=== PATIENT | female | born 1995 | race Hispanic/Latino ===

== ENCOUNTER 2017-11-18 01:36 | Inpatient (IN) | payer MEDICAID, OTHER, SELFPAY ==
[2017-11-18 02:03] VITALS: BMI 27.4
[2017-11-18 02:24] LABS: Amnisure Test RUPTURE DETECTED (No Rupture)
[2017-11-18 02:26] LABS: Amnisure Internal Control QC ACCEPTABLE (ACCEPTABLE)
--- NOTE | 2017-11-18 02:35 | PDOC.LDHP ---
Labor and Delivery H&P Chief complaint: loss of fluid HPI: 22 yo G1 at 40.2 by LMP confirmed with 19.5wk sono. She came in for loss of fluid at 0040 and increased contractions. Following rupture, she noticed a small amount of blood on toilet paper, no gross blood in fluid loss. + movement. Amnisure+, confirmed SROM in L&D. She is followed by Dr. Gasca and clinic. Patient has no other complaints at this time. Current gestational age (weeks): 40 (40.2) Due date: 11/16/17 Dating criteria: last menstrual period (02/09/17), first trimester ultrasound ( 19.5wk sono. Clinical records have been dating her using both LMP and sono) Grav: 1 Para: 0 OB History Details: Seen in clinic with Dr. Gasca. Prior ultrasounds have confirmed normal anatomy, anterior placenta with [place] of 52.6% @ 29.1wks. Patient had f/u U/S at 29.3 with consistent dating from first U/S. Current complications: none, other (anemia of , RH- ( received Rhogam @ 31 wks)) Abnormal US findings: No Past Medical History: Systolic heart murmur, congenital. Current medications: pre- vitamins, iron Previous surgical history: none Allergies/Adverse Reactions: Allergies Allergy/AdvReac Type Severity Reaction Status Date / Time No Known Allergies Allergy Unverified 11/18/17 01:57 Social history: none - Physical Exam General: NAD, resting Heart: RRR Lungs: CTAB Abdomen: NTTP Extremeties: no edema FHT: variability present (130/mod/+accels, no decels or variables) - Vaginal Exam cm dilated: 3 (@0210) Effacement: 90% Station: -1 - OB Labs Blood type: O RH: negative Antibody Screen: negative HIV: negative RPR: negative 1 hour GCT: negative (109) GBS: negative Urine drug screen: not done Rubella: immune Additional Labs: (-)Zika, dengue, quant gold, NILM, pap on 06/28/17 - Assessment L&D Assessment: term rupture in membranes - Plan Plan: admit to L&D (Admit to L&D for confirmed SROM (+FFN)) -: 22 yo G1 at 40.2 by LMP/19.5wk sono presents with loss of fluid. 1. SROM +Amnisure 2. TIUP, sIUP -Plan for expectant management -Patient does not desire epidural at this time -GBS (-) -Third trimester labs reviewed 3. Anemia of -Prior records show H/H 10.8/30.1 @ 31 (10/20/17) -Plan to repeat H/H 4. Rh (-) -Recevied Rhogam @ 31 wks -Plan to give Rhogam after delivery 5. Recent immigrant -(-)Quant gold, Zika and Dengue 6. Systolic heart murmur -Had since /childhood -Asymptomatic
[2017-11-18] MEDS ORDERED: Promethazine HCl 25 MG/ML VIAL IM PRN ×2 (02:38→12:56)
[2017-11-18] MEDS ORDERED: Ondansetron HCl/PF 4 MG/2 ML Vial IVP PRN ×2 (02:38→12:56)
[2017-11-18] MEDS ORDERED: Acetaminophen 500 MG TAB PO PRN (02:38)
[2017-11-18] MEDS ORDERED: Lidocaine 1% (PF) 30 ML VIAL SC PRN (02:38)
[2017-11-18] MEDS ORDERED: Penicillin G Potassium 5 MILL.UNITS in Sodium Chloride 0.9% 100 ML IVPB SCH (03:00)
[2017-11-18 03:50] LABS: HBSAg Index 0.14 S/CO (0-0.99); Hep B Surf Ag Non-Reactive S/CO (NonReactive)
[2017-11-18] MEDS: Lactated Ringer's 1,000 ML IV SCH ×4 (04:58→17:42)
[2017-11-18 05:24] LABS: Hemoglobin 11.7 g/dL (12.0-16.0); Mean Corpuscular HGB CONC 31.1 g/dL (32.0-36.0); Mean Corpuscular Hemoglobin 28.6 pg (27.0-31.0); Mean Corpuscular Volume 91.8 fL (78.0-98.0); Platelet Count 181 thou/uL (130-400); Red Blood Cell (RBC) Count 4.11 mill/uL (4.20-5.40); White Blood Cell (WBC) Count 10.8 thou/uL (4.8-10.8)
--- NOTE | 2017-11-18 06:20 | PDOC.LDPN ---
Labor & Delivery Progress Note - Subjective Subjective: painful contractions (discomfort with contractions, no epidural), vaginal pressure - Objective Vital signs reviewed and normal: yes Abnormal vital signs: Recent BP with systolic 141 General: NAD, breathing through contractions Uterine fundus: non tender Dilation: 5 Effacement: 100% Station: 0 FHT: category 1 (150/mod/+accels) [place] contractions every: 4-6min Plan: continue plan of care -: 22 yo G1 at 40.2 by LMP/19.5wk sono presents with loss of fluid. 1. SROM +Amnisure 2. TIUP, sIUP -Plan for expectant management -Patient does not desire epidural at this time -GBS (-) -Third trimester labs reviewed -/100/0 @0600 -Will start Stadol IV q4hr for pain 3. Anemia of -Prior records show H/H 10.8/30.1 @ 31 (10/20/17) -Repeat H/h is improved from office at 11.7/37.7 4. Rh (-) -Recevied Rhogam @ 31 wks -Plan to give Rhogam after delivery 5. Recent immigrant -(-)Quant gold, Zika and Dengue 6. Systolic heart murmur -Had since /childhood -Asymptomatic 7. Elevated BP -147/87 with repeat of 133. 3min later it was 141/88 -Could be due to discomfort from CTX, no epidural in place -Remains asx-denies ELAM or vision changes -Will monitor BPs will manage dependent on BP range <Rayna Orozco - Last Filed: 11/18/17 06:44> Attending Addendum - Attending Addendum Date/Time: 11/18/17 1113 I personally evaluated the patient and discussed the management with Dr. Orozco I agree with the History, Examination, Assessment and Plan documented above with any addition or exceptions noted below- 22 yo @ 40.2 weeks admitted with SROM in early labor. Patient has progressed to 5 cm. Category 1 FHTs. Continue expectant management. <Rylee Sal - Last Filed: 11/18/17 11:15>
[2017-11-18] MEDS: Butorphanol Tartrate 1 MG/ML VIAL SLOW IVP PRN ×2 (06:47→10:35)
[2017-11-18] MEDS ORDERED: Penicillin G 2.5 MILL.units 2.5 MILL.UNITS in Premix Bag 1 BAG IVPB SCH (07:00)
--- NOTE | 2017-11-18 08:33 | PDOC.LDPN ---
Labor & Delivery Progress Note - Subjective Subjective: comfortable - Objective Vital signs reviewed and normal: yes General: NAD SVE: 5/C/0 FHT: category 1 [place] contractions every: q5-6 min Plan: labor augmentation -: 1) IUP @40.2 weeks with SROM- no cervical change since last check. Will start pitocin augmentation. Category 1 FHTs.
[2017-11-18] MEDS: NS w/ Oxytocin 10 units 500 ML IV SCH (09:33)
[2017-11-18] MEDS ORDERED: Butorphanol Tartrate 1 MG/ML VIAL SLOW IVP PRN (10:36)
--- NOTE | 2017-11-18 11:56 | PDOC.LDPN ---
Labor & Delivery Progress Note - Subjective Subjective: painful contractions - Objective Vital signs reviewed and normal: yes General: breathing through contractions SVE: 5.5/100/0 FHT: category 1 (140/mod/+ accels/no decels) [place] contractions every: 2-3min - Assessment (1) Term Code(s): Z34.80 - ENCOUNTER FOR SUPRVSN OF NORMAL , UNSP TRIMESTER Current Visit: Yes Status: Acute Plan: continue plan of care -: 22 yo G1 at 40.2 by LMP/19.5wk sono presents with loss of fluid. 1. SROM +Amnisure 2. TIUP, sIUP -Plan for expectant management -GBS (-) -Third trimester labs reviewed -5.5/100/0 @1200 -Patient requested epidural for pain - Pitocin at 8 3. Anemia of -Prior records show H/H 10.8/30.1 @ 31 (10/20/17) -Repeat H/h is improved from office at 11.7/37.7 4. Rh (-) -Recevied Rhogam @ 31 wks -Plan to give Rhogam after delivery if baby is Rh + 5. Recent immigrant -(-)Quant gold, Zika and Dengue 6. Systolic heart murmur -Had since /childhood -Asymptomatic 7. Elevated BP - No further elevated BPs, continue to monitor
[2017-11-18] MEDS ORDERED: DISCONTINUE ALL PREVIOUS NARCOTICS FS SCH (12:00)
[2017-11-18] MEDS: Bupivacaine 0.75% 13.4 ML, fentaNYL Citrate/PF 400 MCG in Sodium Chloride 0.9% 78.6 ML EPIDURAL SCH ×2 (12:53→20:00)
[2017-11-18] MEDS ORDERED: ePHEDrine/0.9% NaCl/PF SYRINGE 50 mg/10 ml SLOW IVP PRN (12:56)
[2017-11-18] MEDS ORDERED: Eucerin (Mineral Oil/Petrolatum,White) 30 gm Jar TOP PRN (12:56)
[2017-11-18] MEDS ORDERED: Naloxone HCl 0.4 mg/ml Vial IVP PRN ×2 (12:56)
[2017-11-18] MEDS ORDERED: diphenhydrAMINE 50 MG/ML VIAL IVP PRN (12:56)
[2017-11-18] MEDS ORDERED: Lactated Ringer's 500 ML IV PRN (12:56)
[2017-11-18] MEDS ORDERED: Acetaminophen 325 MG TAB PO PRN (12:56)
[2017-11-18] MEDS ORDERED: Communication Order-Pharmacy FS SCH (13:00)
[2017-11-18] MEDS ORDERED: fentaNYL Citrate/PF 400 MCG, Bupivacaine 0.5% 20 ML in Sodium Chloride 0.9% 72 ML EPIDURAL SCH (13:00)
--- NOTE | 2017-11-18 14:16 | PDOC.LDPN ---
Labor & Delivery Progress Note - Subjective Subjective: comfortable - Objective Vital signs reviewed and normal: yes General: NAD SVE: /+1 per nursing FHT: category 1 (140/mod/+ accels/no decels) [place] contractions every: 2-3min - Assessment (1) Term Code(s): Z34.80 - ENCOUNTER FOR SUPRVSN OF NORMAL , UNSP TRIMESTER Current Visit: Yes Status: Acute Plan: continue plan of care -: 22 yo G1 at 40.2 by LMP/19.5wk sono presents with loss of fluid. 1. SROM +Amnisure 2. TIUP, sIUP -Plan for expectant management -GBS (-) -Third trimester labs reviewed -/+1 per nursing -Epidural in place, pt comfortable -Pitocin at 8 3. Anemia of -Prior records show H/H 10.8/30.1 @ 31 (10/20/17) -Repeat H/h is improved from office at 11.7/37.7 4. Rh (-) -Recevied Rhogam @ 31 wks -Plan to give Rhogam after delivery if baby is Rh + 5. Recent immigrant -(-)Quant gold, Zika and Dengue 6. Systolic heart murmur -Had since /childhood -Asymptomatic 7. Elevated BP - No further elevated BPs, continue to monitor
--- NOTE | 2017-11-18 16:10 | PDOC.LDPN ---
Labor & Delivery Progress Note - Subjective Subjective: comfortable - Objective Vital signs reviewed and normal: yes General: NAD SVE: /+1 FHT: category 1 (150/mod/+ accels/no decels) [place] contractions every: 1-2min - Assessment (1) Term Code(s): Z34.80 - ENCOUNTER FOR SUPRVSN OF NORMAL , UNSP TRIMESTER Current Visit: Yes Status: Acute Plan: continue plan of care -: 22 yo G1 at 40.2 by LMP/19.5wk sono presents with loss of fluid. 1. SROM +Amnisure 2. TIUP, sIUP -Plan for expectant management -GBS (-) -Third trimester labs reviewed -/+1 @1600 -Epidural in place, pt comfortable -Pitocin at 10 3. Anemia of -Prior records show H/H 10.8/30.1 @ 31 (10/20/17) -Repeat H/h is improved from office at 11.7/37.7 4. Rh (-) -Recevied Rhogam @ 31 wks -Plan to give Rhogam after delivery if baby is Rh + 5. Recent immigrant -(-)Quant gold, Zika and Dengue 6. Systolic heart murmur -Had since /childhood -Asymptomatic 7. Elevated BP - No further elevated BPs, continue to monitor
[2017-11-18] MEDS ORDERED: Gentamicin 20 MG/2 ML PF (Neonates) IVPB SCH (17:45)
[2017-11-18] MEDS ORDERED: Acetaminophen 500 MG TAB PO SCH (17:45)
--- NOTE | 2017-11-18 17:48 | PDOC.LDPN ---
Labor & Delivery Progress Note - Subjective Subjective: comfortable - Objective Vital signs reviewed and normal: yes Abnormal vital signs: Fever General: NAD Uterine fundus: non tender Dilation: 7 Effacement: 100% Station: 0 FHT: category 2 (170s/mod/no decels/accels present) [place] contractions every: 2 min IUPC placed: yes Resuscitative measures: maternal IV fluids, other (fluids, IV antibiotics) - Assessment (1) Chorioamnionitis in third trimester Code(s): O41.1230 - CHORIOAMNIONITIS, THIRD TRIMESTER, NOT APPLICABLE OR UNSP Current Visit: Yes Status: Acute -: 1. Term IUP in labor. - unchanged from prior check. -IUPC placed. inadequate contractions. Will titrate pit as pt tolerates. 2. Intra-amniotic infection. - 2 fevers at least 30 min apart with maternal and tachycardia. - will begin amp and gent. - continue to monitor. 3. Rh neg status - needs rhogam PP if baby rh+
[2017-11-18] MEDS ORDERED: Gentamicin Sulfate 310 MG in Sodium Chloride 0.9% 100 ML IVPB SCH (18:00)
[2017-11-18] MEDS: Ampicillin 2 GM in Sodium Chloride 0.9% 100 ML IVPB SCH ×2 (18:24→23:58)
--- NOTE | 2017-11-18 20:58 | PDOC.LDPN ---
Labor & Delivery Progress Note - Objective Vital signs reviewed and normal: yes General: NAD, breathing through contractions Uterine fundus: non tender Dilation: Rim Effacement: 100% Station: 2+ FHT: category 1, early decelerations [place] contractions every: 2-4 minutes - Assessment (1) Term Code(s): Z34.80 - ENCOUNTER FOR SUPRVSN OF NORMAL , UNSP TRIMESTER Current Visit: Yes Status: Acute Comment: Expected progress, considering primipara with inadequate early MVU's, improved with oxytocin. Continue current mgt in anticipation of : allow continued laboring down to reduce final Rim of cervix and further descent prior to pushing. (2) Chorioamnionitis in third trimester Code(s): O41.1230 - CHORIOAMNIONITIS, THIRD TRIMESTER, NOT APPLICABLE OR UNSP Current Visit: Yes Status: Acute Qualifiers: Fetus number: single or unspecified fetus Qualified Code(s): O41.1230 - Chorioamnionitis, third trimester, not applicable or unspecified Comment: Fever responded to Tylenol. Amp/Gent given.
[2017-11-18] MEDS: NS / Oxytocin 40 units/1000ml 1,000 ML ONE (23:02)
[2017-11-18] MEDS ORDERED: Methylergonovine 0.2 MG/ML VIAL ONE (23:31)
[2017-11-18] MEDS ORDERED: Misoprostol 200 MCG TAB ONE (23:31)
[2017-11-18] MEDS ORDERED: Butorphanol Tartrate 1 MG/ML VIAL ONE (23:35)
--- NOTE | 2017-11-19 00:49 | PDOC.OPDEL ---
OB Operative/Delivery Note Delivery Dr/Surgeon: Claudette Motley MD; Dr. Chadwick Brizuela MD; Assist: Dr. Vernon Gasca Pre-Delivery Diagnosis: active labor, ruptured membrane Procedure/Post Delivery Dx: spontaneous vaginal delivery Weeks gestation: 40 (40.2) Anesthesia: local - Additional Findings/Plan Placenta delivered: spontaneous Repaired Obstetrical Laceration: 2nd degree Estimated blood loss: 650 ml Compilations/Other Findings: Delivering Physician - Dr. Claudette Motley Attending - Dr. Vernon Gasca Procedure: Spontaneous Vaginal Delivery Anesthesia: epidural, Local for Repair EBL: 650 ml Pre-op Diagnosis: 1. Term intrauterine in labor 2. Hx of Rh neg 3. Anemia of 4. Chorioamnionitis 5. PROM for 21 hrs Post-op Diagnosis: 1. Term intrauterine , delivered 2. Hx of Rh neg 3. Anemia of 4. Chorioamnionitis 5. Post hemorrhage, EBL 650 cc 6. PROM for 21 hrs 7. 2nd degree perineal lac s/p repair Indications: A 22 y/o female @ 40.2 presents in active labor Delivery Note: This is 22 yo F @ 40.2 wks who delivered a viable F at 2302. Following an antepartum course complicated by maternal fever with concern for chorioamnionitis and PROM for 21 hrs, a vigorous Female was delivered over an intact perineum in the Right occipitoanterior position. Anterior Shoulder and then remainder of the body delivered. No nuchal cord. The head was held down and mouth and nares were bulb suctioned. After delayed cord clamping the cord was cut and cord blood collected. 800 mg cytotec was inserted rectally. Placenta delivered intact in the [place] presentation with a 3 vessel cord noted. Fundal massage was performed and the fundus was firm. The cervix and vagina were inspected and found to to have a second degree perineal laceration. The laceration was noted and repaired with 2-0 vicryl in the usual fashion with good approximation and hemostasis after a lidocaine local anesthetic was injected at site. EBL 650 cc. Infant went to nursery in good condition for routine care. Apgars were 8/9 at 1 & 5 minutes, respectively. Patient tolerated delivery well and went to after routine recovery/care. Post delivery plan: routine recovery
[2017-11-19] MEDS ORDERED: NS / Oxytocin 40 units/1000ml 1,000 ML ONE (00:51)
[2017-11-19] MEDS: NS / Oxytocin 40 units/1000ml 1,000 ML ONE (00:53)
[2017-11-19] MEDS ORDERED: Bisacodyl 10 MG SUPP PR PRN (03:04)
[2017-11-19] MEDS ORDERED: Preparation H Ointment 28 GM TUBE PR PRN (03:04)
[2017-11-19] MEDS ORDERED: Methylergonovine 0.2 MG/ML VIAL IM PRN (03:04)
[2017-11-19] MEDS ORDERED: NS / Oxytocin 40 units/1000ml 1,000 ML IV SCH (03:04)
[2017-11-19] MEDS ORDERED: Milk Of Magnesia 30 ML UDCUP PO PRN (03:04)
[2017-11-19] MEDS ORDERED: Lanolin Ointment 7 GM TUBE TOP PRN (03:04)
[2017-11-19] MEDS ORDERED: Adacel (T-DAP) 0.5 ML VIAL IM ONE ×2 (03:04→09:00)
[2017-11-19 03:32] LABS: #Monocytes 0.7 thou/uL (0.11-0.59); #Neutrophils 13.9 thou/uL (1.40-6.50); %Basophils 0.3 % (0.0-1.0); %Eosinophils 0.2 % (0.0-10.0); %Lymphocytes 6.3 % (21.0-51.0); %Monocytes 4.3 % (0.0-10.0); %Neutrophils 88.9 % (42.0-75.0); Hemoglobin 9.9 g/dL (12.0-16.0); Mean Corpuscular HGB CONC 35.5 g/dL (32.0-36.0); Mean Corpuscular Hemoglobin 32.4 pg (27.0-31.0); Mean Corpuscular Volume 91.3 fL (78.0-98.0); Mean Platelet Volume 7.2 fL (7.4-10.4); Platelet Count 172 thou/uL (130-400); RBC Distribution Width 11.9 % (11.5-14.5); Red Blood Cell (RBC) Count 3.05 mill/uL (4.20-5.40); White Blood Cell (WBC) Count 15.6 thou/uL (4.8-10.8)
[2017-11-19] MEDS ORDERED: Benzocaine/Menthol 20-0.5% 60 ML CAN TOP PRN (04:25)
[2017-11-19] MEDS: Ibuprofen 800 MG TAB PO PRN ×2 (05:58→21:26)
[2017-11-19] MEDS: Ampicillin 2 GM in Sodium Chloride 0.9% 100 ML IVPB SCH ×3 (06:19→18:17)
--- NOTE | 2017-11-19 07:49 | PDOC.PP ---
Post Progress Note Post Day #: 1 Subjective: Patient states she has mild lochia, mild pain. She has walked, urinated and tolerated PO intake. Denies fever, chill, SOB, headache. PO intake tolerated: yes Flatus: no Ambulation: yes Vital Signs (12 hours) Temp Pulse Resp BP 11/19/17 05:30 98.8 F 87 18 127/72 11/19/17 03:45 98.5 F 89 20 125/76 11/19/17 02:40 98.6 F 101 H 22 H 125/69 11/18/17 20:00 98.8 F 76 18 Weight Weight 72.575 kg - Physical Examination General: NAD Cardiovascular: no m/r/g Deviation from normal: 2/6 flow murmur Respiratory: clear to auscultation bilaterally, non-labored breathing Abdominal: + bowel sounds, lochia, no distention, appropriately TTP Fundus firm & at: 19 cm Extremities: negative homans (B) Skin: CS incision dry & intact Neurological: no gross focal deficits Psychiatric: A&Ox3, normal affect Result Diagrams: 11/19/17 01:38 Additional Labs: Post Labs Blood Type O NEGATIVE 11/18/17 02:54 Hep Bs Antigen Non-Reactive S/CO (NonReactive) 11/18/17 02:54 (1) care and examination Code(s): Z39.2 - ENCOUNTER FOR ROUTINE FOLLOW-UP Status: Acute Comment: Started ambulating, taking oral intake and pain under control. Continue with symptomatic management for this. (2) Rh negative, maternal Code(s): O09.899 - SUPERVISION OF OTHER HIGH RISK PREGNANCIES, UNSP TRIMESTER; Z67.91 - UNSPECIFIED BLOOD TYPE, RH NEGATIVE Status: Acute Comment: Patient received 1 vial of rhogam post delivery, according to screening, which is adequate. (3) Chorioamnionitis in third trimester Code(s): O41.1230 - CHORIOAMNIONITIS, THIRD TRIMESTER, NOT APPLICABLE OR UNSP Status: Acute QualifierTitle: Fetus number: single or unspecified fetus Qualified Code( s): O41.1230 - Chorioamnionitis, third trimester, not applicable or unspecified Comment: Fever responded to Tylenol. Amp/Gent given. (4) hemorrhage Code(s): O72.1 - OTHER IMMEDIATE HEMORRHAGE Status: Acute Comment : Lost 650 cc of blood. Repeat H/H shows drop of 2 points. Patient not tachy and BP is appropriate. Continue to monitor. Transfuse if needed. Start iron and bowel regimen. <Nolan Ca - Last Filed: 11/19/17 07:47> Vital Signs (12 hours) Temp Pulse Resp BP Pulse Ox 11/19/17 16:51 97.6 F 81 18 118/71 11/19/17 11:38 97.8 F 87 16 11/19/17 11:37 97.8 F 87 16 119/70 11/19/17 08:10 98.8 F 87 18 98 Weight Weight 72.575 kg Result Diagrams: 11/19/17 01:38 Additional Labs: Post Labs Blood Type O NEGATIVE 11/18/17 02:54 Hep Bs Antigen Non-Reactive S/CO (NonReactive) 11/18/17 02:54 <Rylee Sal - Last Filed: 11/19/17 19:28> Attending Addendum - Attending Addendum Date/Time: 11/19/171921 I personally evaluated the patient and discussed the management with Dr. Ca I agree with the History, Examination, Assessment and Plan documented above with any addition or exceptions noted below - Patient without complaints. Tolerating diet. Afebrile VSS. 1) PPD#1 S/P - Continue routine care. 2) ChorioMnionitis- afebrile since delivery. Continue antibiotics till 24 hours afebrile. <Rylee Sal - Last Filed: 11/19/17 19:28>
[2017-11-19] MEDS: Docusate Calcium (SURFAK) 240 MG CAP PO SCH ×2 (09:29→21:26)
[2017-11-19] MEDS: Ferrous Sulfate 325 MG TAB PO SCH ×2 (09:29→16:50)
[2017-11-19] MEDS: Prenatal Vitamin 1 TAB PO SCH (09:29)
[2017-11-19] MEDS: NS w/ Oxytocin 10 units 500 ML IV SCH (11:48)
[2017-11-19] MEDS ORDERED: GENTAMICIN SULFATE IVPB SCH (21:00)
[2017-11-19] MEDS ORDERED: SODIUM CHLORIDE 0.9% IVPB SCH (21:00)
[2017-11-19] MEDS ORDERED: Gentamicin 20 MG/2 ML PF (Neonates) IVPB SCH (21:00)
[2017-11-19] MEDS ORDERED: Ibuprofen 800 MG TAB PO PRN (21:09)
[2017-11-20] MEDS: Ampicillin 2 GM in Sodium Chloride 0.9% 100 ML IVPB SCH ×2 (00:34→05:42)
--- NOTE | 2017-11-20 06:04 | PDOC.PP ---
Post Progress Note Post Day #: 2 Subjective: Patient states she has mild lochia, mild pain. She has walked, urinated, had a BM, and tolerated PO intake. She was able to breastfeed this morning without the nipple shield but is still struggling with this. Denies fever, chill, SOB, headache. PO intake tolerated: yes Flatus: yes Ambulation: yes Vital Signs (12 hours) Temp Pulse Resp BP 11/20/17 00:05 98.1 F 75 16 123/59 L 11/19/17 21:30 98.9 F 100 18 116/69 Weight Weight 72.575 kg - Physical Examination General: NAD Cardiovascular: no m/r/g Respiratory: clear to auscultation bilaterally, non-labored breathing Abdominal: + bowel sounds, lochia, no distention, appropriately TTP Extremities: negative homans (B) Skin: no rash Neurological: no gross focal deficits Psychiatric: A&Ox3, normal affect Result Diagrams: 11/19/17 01:38 Additional Labs: Post Labs Blood Type O NEGATIVE 11/18/17 02:54 Hep Bs Antigen Non-Reactive S/CO (NonReactive) 11/18/17 02:54 (1) care and examination Code(s): Z39.2 - ENCOUNTER FOR ROUTINE FOLLOW-UP Status: Acute (2) Chorioamnionitis in third trimester Code(s): O41.1230 - CHORIOAMNIONITIS, THIRD TRIMESTER, NOT APPLICABLE OR UNSP Status: Acute Qualifiers: Fetus number: single or unspecified fetus Qualified Code(s): O41.1230 - Chorioamnionitis, third trimester, not applicable or unspecified (3) hemorrhage Code(s): O72.1 - OTHER IMMEDIATE HEMORRHAGE Status: Resolved (4) Rh negative, maternal Code(s): O09.899 - SUPERVISION OF OTHER HIGH RISK PREGNANCIES, UNSP TRIMESTER; Z67.91 - UNSPECIFIED BLOOD TYPE, RH NEGATIVE Status: Resolved (5) PROM (premature rupture of membranes) Code(s): O42.90 - DEREK ROM, 7TH0 BETW RUPT & ONST LABR, UNSP WEEKS OF GEST Status: Acute - Assessment/Plan 22 yo s/p at 40.2w, PPD #2 1. Care - Started ambulating, taking oral intake and pain under control. - Had a BM last night and is passing gas - Continue with symptomatic management for this. - Continue Bowel regimen 2. Rh neg mother - Patient received 1 vial of rhogam on 09/14 - s/p 2nd dose after delivery 3. Chorioamnionitis/PROM - Fever responded to Tylenol - s/p 24 hours of Amp/Gent from last fever 4. Hemorrhage/anemia of - Repeat H/H shows drop of 2 points. - Patient not tachy and BP is appropriate. - Continue to monitor. - Transfuse if needed - Continue Iron 5. TB/Zika exposure - Quant gold negative and no symptoms - Zika screen negative 6. Late to care - Initial visits in [place]
[2017-11-20 08:30] VITALS: TEMP 97.8
[2017-11-20] MEDS: Prenatal Vitamin 1 TAB PO SCH (09:56)
[2017-11-20] MEDS: Docusate Calcium (SURFAK) 240 MG CAP PO SCH (09:56)
[2017-11-20] MEDS: Ferrous Sulfate 325 MG TAB PO SCH ×2 (09:57→18:15)
[2017-11-20 21:19] VITALS: BP 132/78
== END 2017-11-20 21:22 | disposition home or self-care (01) | DRG 774 ==
LOC: L&D/OP 01:36 → L&D 02:38 → 3SE 11-19 03:02 → 3SW 11-20 08:57
PROVIDERS: ADMIT Family Medicine; ATTEND Family Medicine
PROC: 10E0XZZ Delivery of Products of Conception, External Approach (ICD-10-PCS; principal; 2017-11-19)
PROC: 0KQM0ZZ Repair Perineum Muscle, Open Approach (ICD-10-PCS; 2017-11-19)
DX: O99.02 Anemia complicating childbirth (principal); O99.42 Diseases of the circulatory system complicating childbirth; O41.1230 Chorioamnionitis, third trimester, not applicable or unspecified; O72.1 Other immediate postpartum hemorrhage; O75.2 Pyrexia during labor, not elsewhere classified; D64.9 Anemia, unspecified; O70.1 Second degree perineal laceration during delivery; Z3A.40 40 weeks gestation of pregnancy; Z37.0 Single live birth; R01.1 Cardiac murmur, unspecified
CPT/HCPCS: 36415; 51702; 76815; 84112; 85025; 85027; 85461; 86850; 86900; 86901; 87340; 90384; 96372; 99285; A4216; J0290; J0595; J1580; J2001; J2210; J3010; J7050